=== PATIENT | male | born 1960 | race Caucasian/White ===

== ENCOUNTER 2017-04-24 21:34 | Emergency (ER) | payer SELFPAY ==
[~2017-04-24] VITALS: Ht 190.5 cm; Wt 113.4 kg
[2017-04-24] MEDS ORDERED: IBUPROFEN 800 MG (MOTRIN) TAB PO STA (22:31)
[2017-04-24] MEDS ORDERED: NS IV 1000 ML 1,000 ML IV ONE (22:34)
--- NOTE | 2017-04-24 22:34 | ED Cough/URI ---
General Stated Complaint: COUGH, NO ENERGY, CHILLS History of Present Illness Time seen by provider: 22:25 Initial Comments 56-year-old male reports cough, malaise, myalgias and chills. He reports having a cough for the last month but he acutely became sicker today. He reports despite increase water intake, his urine has been dark. Rash started today, to upper and lower ext. No known cause, no change in detergents, skin products or other causative factors. No medication [employer] Timing/Duration: getting worse Severity/Quality: dry cough Prior Episodes/Possible Cause: occasional episodes Modifying Factors: Improves With Rest Associated Symptoms: cough, fever/chills, headache, lightheadedness, muscle aches, nasal congestion, shortness of breath Allergies and Home Medications Allergies Coded Allergies: No Known Drug Allergies (Unverified , 04/24/17) Constitutional: see HPI, fever EENTM: see HPI, nose congestion Respiratory: see HPI, cough, No short of breath Cardiovascular: no symptoms reported, see HPI Gastrointestinal: no symptoms reported, see HPI Genitourinary: see HPI, frequency Musculoskeletal: see HPI, muscle pain, muscle cramps, muscle weakness Skin: see HPI, rash All Other Systems Reviewed Negative Unless Noted: Yes Past Nulhymz-Pulgyi-Zozddl Hx Patient Social History Recent Foreign Travel: No Contact w/Someone Who Travel: No Reviewed Nursing Assessment Reviewed/Agree w Nursing PMH: Yes Physical Exam Vital Signs Vital Sign - Last 12Hours 04/24/17 22:25 Temp 101.0 Pulse 107 Resp 20 B/P (MAP) 109/98 (102) O2 Delivery Room Air Capillary Refill : General Appearance: WD/WN, no apparent distress Eyes: Bilateral Eye Normal Inspection, Bilateral Eye PERRL, Bilateral Eye EOMI HEENT: PERRL/EOMI, normal ENT inspection, TMs normal, pharynx normal Neck: non-tender, full range of motion, supple, normal inspection, No lymphadenopathy (R), No lymphadenopathy (L) Respiratory: chest non-tender, lungs clear, normal breath sounds Cardiovascular: normal peripheral pulses, regular rate, rhythm, no murmur Gastrointestinal: normal bowel sounds, non tender, soft Neurologic/Psychiatric: no motor/sensory deficits, alert, normal mood/affect, oriented x 3 Skin: normal color, warm/dry, rash (upper and lower extremities, maculopapular) Progress/Results/Core Measures Suspected Sepsis SIRS Temperature: Pulse: Respiratory Rate: Laboratory Tests 04/24/17 22:48: White Blood Count 12.4H Blood Pressure / Mean: Laboratory Tests 04/24/17 22:48: Platelet Count 190 Results/Orders Lab Results Laboratory Tests Test 04/24/17 22:31 04/24/17 22:48 Range/Units Urine Color YELLOW Urine Clarity CLEAR Urine pH 6 5-9 Urine Specific [place] 1.010 L 1.016-1.022 Urine Protein NEGATIVE NEGATIVE Urine Glucose (UA) NEGATIVE NEGATIVE Urine Ketones NEGATIVE NEGATIVE Urine Nitrite NEGATIVE NEGATIVE Urine Bilirubin NEGATIVE NEGATIVE Urine Urobilinogen NORMAL NORMAL MG/DL Urine Leukocyte Esterase NEGATIVE NEGATIVE Urine RBC (Auto) NEGATIVE NEGATIVE Urine RBC NONE /HPF Urine WBC 0-2 /HPF Urine Crystals NONE /LPF Urine Bacteria NEGATIVE /HPF Urine Casts NONE /LPF Urine Mucus NEGATIVE /LPF Urine Culture Indicated NO White Blood Count 12.4 H 4.3-11.0 10^3/uL Red Blood Count 3.78 L 4.35-5.85 10^6/uL Hemoglobin 11.7 L 13.3-17.7 G/DL Hematocrit 32 L 40-54 % Mean Corpuscular Volume 83 80-99 FL Mean Corpuscular Hemoglobin 31 25-34 PG Mean Corpuscular Hemoglobin Concent 37 H 32-36 G/DL Red Cell Distribution Width 13.0 10.0-14.5 % Platelet Count 190 130-400 10^3/uL Mean Platelet Volume 10.4 7.4-10.4 FL Neutrophils (%) (Auto) 68 42-75 % Lymphocytes (%) (Auto) 13 12-44 % Monocytes (%) (Auto) 18 H 0-12 % Eosinophils (%) (Auto) 2 0-10 % Basophils (%) (Auto) 0 0-10 % Neutrophils # (Auto) 8.4 H 1.8-7.8 X 10^3 Lymphocytes # (Auto) 1.7 1.0-4.0 X 10^3 Monocytes # (Auto) 2.2 H 0.0-1.0 X 10^3 Eosinophils # (Auto) 0.2 0.0-0.3 10^3/uL Basophils # (Auto) 0.0 0.0-0.1 10^3/uL Micro Results Microbiology 04/24/17 Influenza Types A,B Antigen (BAKARI) - Final, Complete My Orders Orders - VARUN MCKEON Ua Culture If Indicated (04/24/17 22:29) Influenza A And B Antigens (04/24/17 22:29) Ibuprofen Tablet (Motrin Tablet) (04/24/17 22:31) Saline Lock/Iv-Start (04/24/17 22:34) Ns Iv 1000 Ml (Sodium Chloride 0.9%) (04/24/17 22:34) Cbc With Automated Diff (04/24/17 22:38) Comprehensive Metabolic Panel (04/24/17 22:38) Dexamethasone Pf Injection (Decadron Pf (04/24/17 23:05) Dexamethasone Injection (Decadron Inject (04/24/17 23:20) Medications Given in ED Current Medications Medications Dose Ordered Sig/Natalio Route Start Time Stop Time Status Last Admin Dose Admin Dexamethasone Sodium Phosphate 10 mg STK-MED ONCE .ROUTE 04/24/17 23:20 04/24/17 23:23 DC 04/24/17 23:23 10 MG Sodium Chloride 1,000 ml @ 0 mls/hr Q0M ONCE IV 04/24/17 22:34 04/24/17 22:35 DC 04/24/17 22:41 1,000 MLS/HR Vital Signs/I&O Vital Sign - Last 12Hours 04/24/17 04/24/17 22:25 22:41 Temp 101.0 101.0 Pulse 107 Resp 20 B/P (MAP) 109/98 (102) O2 Delivery Room Air Capillary Refill : Progress Note : Time: 22:25 Progress Note Initial evaluation completed, Labs, IV NS 1 L, Ibuprofen 800 mg PO. Will re- evaluate. 2315 Temp 99.4; B/P 122/79. 2320 discharge planning and return precautions reviewed with the patient and his . All questions answered. Departure Impression Impression: Primary Impression: Upper respiratory infection Qualified Codes: J06.9 - Acute upper respiratory infection, unspecified; B97.89 - Other viral agents as the cause of diseases classified elsewhere Additional Impression: Fever Qualified Codes: R50.9 - Fever, unspecified Disposition: 01 HOME, SELF-CARE Condition: Stable Departure-Patient Inst. Decision time for Depature: 23:15 Referrals: PEDRO PABLO BOTELLO DO (PCP/Family) Primary Care Physician Patient Instructions: Viral Upper Respiratory Infection, Adult (DC) Add. Discharge Instructions: Muccinex 1 tablet twice daily EmergenC 1 packet daily in cup of water. Alternate Tylenol 650 mg and Ibuprofen 600 mg every 8 hours for aching or fever. Increase water intake. Rest. Follow up with Primary Care Provider, if no improvement in 2-3 days or symptoms worsen. All discharge instructions reviewed with patient and/or family. Voiced understanding. Copy Copies To 1: PEDRO PABLO BOTELLO AMY ARNP Apr 24, 2017 22:34
[2017-04-24 22:49] LABS: BILIRUBIN,URINE NEGATIVE (NEGATIVE); CLARITY,URINE CLEAR; COLOR,URINE YELLOW; GLUCOSE, URINE (UA) NEGATIVE (NEGATIVE); KETONES,URINE NEGATIVE (NEGATIVE); LEUKOCYTE ESTERASE ,URINE NEGATIVE (NEGATIVE); NITRITE,URINE NEGATIVE (NEGATIVE); PH,URINE 6 (5-9); PROTEIN,URINE NEGATIVE (NEGATIVE); UROBILINOGEN,URINE NORMAL (NORMAL)
[2017-04-24 23:00] LABS: BASOPHILS % (AUTO) 0 % (0-10); EOSINOPHILS # (AUTO) 0.2 10^3/uL (0.0-0.3); EOSINOPHILS % (AUTO) 2 % (0-10); HEMATOCRIT 32 % (40-54); HEMOGLOBIN 11.7 G/DL (13.3-17.7); LYMPHOCYTES # (AUTO) 1.7 X 10^3 (1.0-4.0); LYMPHOCYTES % (AUTO) 13 % (12-44); MEAN CORPUSCULAR HEMOGLOBIN 31 PG (25-34); MEAN CORPUSCULAR HGB CONC 37 G/DL (32-36); MEAN CORPUSCULAR VOLUME 83 FL (80-99); MEAN PLATELET VOLUME 10.4 FL (7.4-10.4); MONOCYTES # (AUTO) 2.2 X 10^3 (0.0-1.0); MONOCYTES % (AUTO) 18 % (0-12); NEUTROPHILS # (AUTO) 8.4 X 10^3 (1.8-7.8); NEUTROPHILS % (AUTO) 68 % (42-75); PLATELET COUNT 190 10^3/uL (130-400); RED BLOOD COUNT 3.78 10^6/uL (4.35-5.85); WHITE BLOOD COUNT 12.4 10^3/uL (4.3-11.0)
[2017-04-24] MEDS ORDERED: DEXAMETHASONE PF 10 MG/ML (DECADRON) VIAL IV STA (23:05)
[2017-04-24 23:07] LABS: BACTERIA,URINE NEGATIVE /HPF; WBC,URINE 0-2 /HPF
[2017-04-24] MEDS ORDERED: DEXAMETHASONE 10 MG/ML (DECADRON) 1 ML VIAL ONE (23:20)
[2017-04-24 23:30] VITALS: BP 122/79
[2017-04-24 23:37] LABS: ALANINE AMINOTRANSFERASE 65 U/L (0-55); ALBUMIN 3.5 GM/DL (3.2-4.5); ALKALINE PHOSPHATASE 110 U/L (40-136); BILIRUBIN,TOTAL 0.8 MG/DL (0.1-1.0); BUN/CREATININE RATIO 12; CALCIUM 8.7 MG/DL (8.5-10.1); CARBON DIOXIDE 21 MMOL/L (21-32); CHLORIDE 101 MMOL/L (98-107); CREATININE SERUM 0.95 MG/DL (0.60-1.30); GFR ESTIMATED > 60; GLUCOSE 108 MG/DL (70-105); POTASSIUM 3.8 MMOL/L (3.6-5.0); SODIUM 133 MMOL/L (135-145); TOTAL PROTEIN 6.5 GM/DL (6.4-8.2)
== END 2017-04-24 23:30 | disposition home or self-care (01) ==
LOC: EDUNIT# 21:34 → ER 21:36
DX: J06.9 Acute upper respiratory infection, unspecified (principal)
CPT/HCPCS: 36415; 80053; 81000; 85025; 87804